=== PATIENT | male | born 1940 | race Caucasian/White ===

== ENCOUNTER 2019-01-13 05:45 | Emergency (ER) | payer OTHER, MEDICARE ==
[~2019-01-13] VITALS: Ht 172.7 cm; Wt 94.8 kg
[~2019-01-13 05:45] MED LIST: ASCO500 PO; ASPI325EC PO; ATOR10 PO; CALCIT950 PO; CRANBERRY250 MG PO; Flovent Diskus50 MCG IH; GLIP10 PO; HYDR.5TC TOP; INSULANPEN SC; LEVSOD125; MOME220I INH; MULVITMIND; OMEP20ER PO; TIOT18 INH; TOCO400 PO; VALS80 PO
[2019-01-13] MEDS ORDERED: Aspirin EC81 MG PO (06:16)
[2019-01-13] MEDS ORDERED: ATOR20 (06:17)
[2019-01-13] MEDS ORDERED: Vitamin D2000 UNIT PO (06:17)
[2019-01-13] MEDS ORDERED: CYAN500 PO (06:18)
[2019-01-13] MEDS ORDERED: FLUO10 PO (06:19)
[2019-01-13] MEDS ORDERED: Flonase 0.05% N16 GM (06:20)
[2019-01-13] MEDS ORDERED: HYDCHL12.5 PO (06:20)
[2019-01-13] MEDS ORDERED: LEVSOD125 PO (06:21)
[2019-01-13] MEDS ORDERED: INSULIN (06:21)
[2019-01-13] MEDS ORDERED: MEMA10 PO (06:22)
[2019-01-13] MEDS ORDERED: OMEPRAZOLE20 MG PO (06:23)
[2019-01-13] MEDS ORDERED: METF500 PO (06:23)
[2019-01-13] MEDS ORDERED: VALSARTAN (06:26)
== END 2019-01-13 09:14 | disposition home or self-care (01) ==
LOC: ER 05:45
DX: S00.11XA Contusion of right eyelid and periocular area, initial encounter (principal); S40.011A Contusion of right shoulder, initial encounter; S80.01XA Contusion of right knee, initial encounter; W01.198A Fall on same level from slipping, tripping and stumbling with subsequent striking against other object, initial encounter; E11.9 Type 2 diabetes mellitus without complications; Z79.899 Other long term (current) drug therapy; Z79.82 Long term (current) use of aspirin; Z79.4 Long term (current) use of insulin
CPT/HCPCS: 70480; 73030; 73562-RT; 99284-25

== ENCOUNTER 2021-04-29 11:20 | Emergency (ER) | payer OTHER ==
[~2021-04-29] VITALS: Ht 170.2 cm; Wt 122.5 kg
[~2021-04-29 11:20] MED LIST changes: +ATOR20; +Aspirin EC81 MG PO; +CYAN500 PO; +FLUO10 PO; +Flonase 0.05% N16 GM; +HYDCHL12.5 PO; +INSULIN; +LEVSOD125 PO; +MEMA10 PO; +METF500 PO; +OMEPRAZOLE20 MG PO; +VALSARTAN; +Vitamin D2000 UNIT PO
[2021-04-29 12:46] LABS: BASOPHILS ABSOLUTE AUTO 0.06 K/mm3 (0.00-0.23); BASOPHILS PERCENT AUTO 1 % (0-2); EOSINOPHILS ABSOLUTE AUTO 0.27 K/mm3 (0.00-0.68); EOSINOPHILS PERCENT AUTO 3 % (0-6); Hematocrit 41.2 % (37.0-53.0); Hemoglobin 13.9 g/dL (13.5-17.5); IMMATURE GRAN ABSOLUTE AUTO 0.02 K/mm3 (0.00-0.10); IMMATURE GRAN PERCENT AUTO 0 % (0-1); LYMPHOCYTES ABSOLUTE AUTO 1.95 K/mm3 (0.84-5.20); LYMPHOCYTES PERCENT AUTO 24 % (21-46); MONOCYTES ABSOLUTE AUTO 0.65 K/mm3 (0.16-1.47); MONOCYTES PERCENT AUTO 8 % (4-13); Mean Corpuscular HGB 32.8 pg (26.0-34.0); Mean Corpuscular HGB Conc 33.7 g/dL (31.5-36.5); Mean Corpuscular Volume 97 fL (80-100); NEUTROPHILS ABSOLUTE AUTO 5.21 K/mm3 (1.96-9.15); NEUTROPHILS PERCENT AUTO 64 % (41-73); Platelet Count 192 K/mm3 (150-400); RDW Coefficient Variation 13.8 % (11.7-14.2); RDW Standard Deviation 49.6 fL (35.1-46.3); Red Blood Cell Count 4.24 M/mm3 (4.30-5.90); White Blood Cell Count 8.16 K/mm3 (4.00-11.30)
[2021-04-29 13:11] LABS: Alanine Aminotransfer (ALT/SGP 34 U/L (12-78); Albumin, Blood 3.2 g/dL (3.4-5.0); Albumin/Globulin Ratio 0.6 (0.8-1.8); Alk Phos 95 U/L (50-136); Anion Gap 4 mmol/L (6-16); Aspartate Aminotrans (AST/SGOT 26 U/L (12-37); Bilirubin, Total 0.5 mg/dL (0.1-1.0); Blood Urea Nitrogen 22 mg/dL (8-24); CO2, Blood 29 mmol/L (21-32); Calcium, Blood 9.3 mg/dL (8.5-10.1); Chloride, Blood 103 mmol/L (98-108); Creatinine, Blood 1.16 mg/dL (0.60-1.20); Globulin, Blood 5.2 g/dL (2.2-4.0); Glomerular Filtration Rate >60 (60-); Glucose, Blood 108 mg/dL (70-99); Potassium, Blood 4.1 mmol/L (3.5-5.5); Sodium, Blood 136 mmol/L (136-145); Total Protein, Blood 8.4 g/dL (6.4-8.2); Troponin I <0.015 ng/mL (0.000-0.040)
[2021-04-29] MEDS ORDERED: ACET500 PO (13:19)
[2021-04-29] MEDS ORDERED: ALBU2.5V5 INH (13:22)
[2021-04-29] MEDS ORDERED: BISA5EC PO (13:22)
[2021-04-29] MEDS ORDERED: BISA10S (13:23)
[2021-04-29] MEDS ORDERED: CARB10OTL (13:28)
[2021-04-29] MEDS ORDERED: FURO20 PO (13:29)
[2021-04-29] MEDS ORDERED: CEFP200 PO (13:29)
[2021-04-29] MEDS ORDERED: DEXT40GEL PO (13:30)
[2021-04-29] MEDS ORDERED: LACT (13:30)
[2021-04-29] MEDS ORDERED: DULCOLAX400 MG/5 M PO (13:31)
[2021-04-29] MEDS ORDERED: NITR.4SL SL (13:31)
[2021-04-29] MEDS ORDERED: NYSTRIT TOP (13:31)
[2021-04-29] MEDS ORDERED: STRIVERDI RESPIM4 G1 IH (13:31)
[2021-04-29] MEDS ORDERED: K-Dur20 MEQ PO (13:32)
[2021-04-29] MEDS ORDERED: SENN187 PO (13:32)
[2021-04-29] MEDS ORDERED: MIRALAX17 GM PO (13:32)
[2021-04-29] MEDS ORDERED: 1/2 NS 250ml250 ML (13:33)
[2021-04-29] MEDS ORDERED: Rapaflo8 MG PO (13:33)
[2021-04-29] MEDS ORDERED: CEFD300 PO (15:58)
== END 2021-04-29 16:48 | disposition home or self-care (01) ==
LOC: ER 11:20
PROVIDERS: Emergency Medicine
DX: R07.9 Chest pain, unspecified (principal); E11.9 Type 2 diabetes mellitus without complications; G20 Parkinson's disease; Z79.899 Other long term (current) drug therapy; Z79.82 Long term (current) use of aspirin; Z79.4 Long term (current) use of insulin; Z79.84 Long term (current) use of oral hypoglycemic drugs
CPT/HCPCS: 36415; 71045; 80053; 83880; 84484; 85025; 93005; 93010; 99285-25